=== PATIENT | female | born 1990 | race Caucasian/White ===

== ENCOUNTER 2017-03-20 06:27 | Emergency (ER) | payer BC ==
--- NOTE | 2017-03-20 07:04 | EDM.PDOC ---
ED HPI HEADACHE COMPLAINT - General Chief Complaint: Headache Stated Complaint: HEADACHE Time Seen by Provider: 03/20/17 07:04 Source of Information: Reports: Patient History Limitations: Reports: No limitations - History of Present Illness Symptom Onset Date: 03/18/17 Symptom Onset Time: 07:00 Timing/Duration: Reports: day(s): Location: Reports: temporal, right, eye, right Quality: Reports: pounding, other (throbbing) Severity: Reports: similar to past headaches Context: Denies: dietary trigger, recent drugs/ETOH, change in medications, other Associated Symptoms: Reports: photophobia, vision changes 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, 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 - Related Data Allergies/ADRs: Allergies Allergy/AdvReac Type Severity Reaction Status Date / Time clarithromycin [From Biaxin] Allergy Airway Verified 03/20/17 06:37 Tightness fluticasone propionate Allergy Nose Bleeds Verified 03/20/17 06:37 [From Flonase] cefuroxime axetil AdvReac Nausea and Verified 03/20/17 06:37 [From Ceftin] Vomiting risperidone AdvReac Verified 03/20/17 06:37 Home Meds: Home Meds Cetirizine HCl [Zyrtec] 20 mg PO DAILY 01/03/17 [History] ClonazePAM [KlonoPIN] 2 mg PO BEDTIME 01/03/17 [History] Fluticasone/Salmeterol [Advair 250-50 Diskus] 1 spray IH DAILY 01/03/17 [History ] Montelukast Sodium [Singulair] 10 mg PO DAILY 01/03/17 [History] fluvoxaMINE Maleate [Fluvoxamine Maleate ER] 150 mg PO BID 01/03/17 [History] Ketorolac [Toradol] 10 mg PO Q6H PRN #6 tablet 03/20/17 [Rx] Metoclopramide HCl [Reglan] 10 mg PO Q6H PRN #6 tablet 03/20/17 [Rx] Past Medical History HEENT History: Reports: Allergic rhinitis Respiratory History: Reports: Asthma, Other (see below) Other Respiratory History: allergies 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 History: Reports: GERD 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 (see below) Other OB/BYN History: IUD Neurological History: Reports: Migraines Psychiatric History: Reports: Anxiety, Bipolar, OCD - Past Surgical History HEENT Surgical History: Reports: Adenoidectomy, Tonsillectomy GI Surgical History: Reports: Cholecystectomy Social & Family History - Tobacco Use Smoking Status *Q: Never Smoker Years of Tobacco use: 6 Packs/Tins Daily: 1 Second Hand Smoke Exposure: Yes - Caffeine Use Caffeine Use: Reports: None - Alcohol Use Days Per Week of Alcohol Use: 0 Number of Drinks Per Day: 0 Total Drinks Per Week: 0 - Recreational Drug Use Recreational Drug Use: No Drug Use in Last 12 Months: No - Living Situation & Occupation Living situation: Reports: single ED ROS GENERAL - Review of Systems Review Of Systems: See Below Constitutional: Reports: fatigue, decreased appetite. Denies: fever, chills, malaise, weakness, weight loss HEENT: Reports: No symptoms Respiratory: Reports: No Symptoms Cardiovascular: Reports: No symptoms Endocrine: Reports: no symptoms GI/Abdominal: Reports: No symptoms : Reports: no symptoms Musculoskeletal: Reports: no symptoms Skin: Reports: no symptoms Neurological: Reports: No Symptoms Psychiatric: Reports: No symptoms Hematologic/Lymphatic: Reports: no symptoms Immunologic: Reports: no symptoms - Physical Exam Exam: See Below Exam Limited By: No limitations General Appearance: alert, moderate distress (Wearing sunglasses.) Eye Exam: bilateral eye: normal inspection, PERRL Head Exam: atraumatic, normocephalic Neck: normal inspection, supple, non-tender, full range of motion Respiratory/Chest: no respiratory distress, lungs clear, normal breath sounds, no accessory muscle use Cardiovascular: normal peripheral pulses, regular rate, rhythm, no edema, no gallop, no murmur GI/Abdominal: normal bowel sounds, soft, non tender, no organomegaly Extremities: normal inspection, normal range of motion, non-tender, no pedal edema, normal capillary refill Psychiatric: normal affect, normal mood Skin Exam: Warm, Dry, Intact, Normal color, No rash Course - Vital Signs Last Recorded V/S: Last Vital Signs Temp 36.8 C 03/20/17 06:32 Pulse 100 03/20/17 07:49 Resp 16 03/20/17 07:49 BP 84/53 L 03/20/17 07:49 Pulse Ox 100 03/20/17 07:49 - Orders/Labs/Meds Orders: Active Orders 24 hr Category Date Time Status Dextrose 5%-0.9% NaCl [Dextrose 5%-Normal Saline] 1,000 Med 03/20/17 07:15 Active ml IV ASDIRECTED Ketorolac [Toradol] Med 03/20/17 07:15 Active 30 mg IVPUSH ONETIME Medication Orders Dextrose/Sodium Chloride (Dextrose 5%-Normal Saline) 1,000 mls @ 999 mls/hr IV ASDIRECTED JONATHAN Last Admin: 03/20/17 07:22 Dose: 999 mls/hr Ketorolac Tromethamine (Toradol) 30 mg IVPUSH ONETIME JONATHAN Last Admin: 03/20/17 07:24 Dose: 30 mg Meds: Medications Generic Name Dose Route Start Last Admin Trade Name Freq PRN Reason Stop Dose Admin Dextrose/Sodium Chloride 1,000 mls @ 999 mls/hr 03/20/17 07:15 03/20/17 07:22 Dextrose 5%-Normal Saline IV 999 mls/hr ASDIRECTED JONATHAN Administration Ketorolac Tromethamine 30 mg 03/20/17 07:15 03/20/17 07:24 Toradol IVPUSH 30 mg ONETIME JONATHAN Administration Discontinued Medications Generic Name Dose Route Start Last Admin Trade Name Freq PRN Reason Stop Dose Admin Diphenhydramine HCl 25 mg 03/20/17 07:08 Benadryl IVPUSH 03/20/17 07:09 ONETIME ONE Diphenhydramine HCl 50 mg 03/20/17 07:15 03/20/17 07:28 Benadryl IVPUSH 03/20/17 07:16 50 mg ONETIME ONE Administration Metoclopramide HCl 10 mg 03/20/17 07:08 03/20/17 07:26 Reglan IVPUSH 03/20/17 07:09 10 mg ONETIME ONE Administration - Radiology Interpretation Free Text/Narrative:: 76-year-old female presents the ED with a severe headache. Patient states she woke with a headache on ThursdayMarch 20 with a throbbing pounding headache that is primarily on the right side particularly right forehead and right retro- ocular space. Associated nausea without vomiting. She was able to eat and drink fluids however. She has not vomited. His headache also reports she's experience in the past. She takes Topamax daily to try and prevent migraine headaches. Has been up most of the night night with a pounding headache. Headache is no different than what she's experienced in the past. She recognizes that she's extremely light sensitive. Plan IV D5 normal saline and opened. Given Toradol 30 mg IV with Benadryl 50 mg IV and Reglan 10 mg IV. - Re-Assessments/Exams Free Text/Narrative Re-Assessment/Exam: 03/20/17 08:01 feeling much improved. Headache is currently down to 3/10. She feels she'll be up to go home and sleep at this time. Has had about 600 mils of normal saline infused. She'll be discharged home at this time. I did provide a prescription for Toradol 10 mg tablets and Reglan 10 mg tablets I can be taken together every 6 hours when necessary for bad headache relief. Departure - Departure Time of Disposition: 08:00 Disposition: Home, Self-Care 01 Condition: fair Clinical Impression: Migraine Prescriptions: Ketorolac [Toradol] 10 mg PO Q6H PRN #6 tablet PRN Reason: migraine headache Metoclopramide HCl [Reglan] 10 mg PO Q6H PRN #6 tablet PRN Reason: migraine headache Referrals: Iirs Negron PA-C [Primary Care Provider] - Forms: ED Department Discharge, Return to Work/School Form Additional Instructions: Evaluation in the emergency room today in regards to migraine headache. Treated with IV fluids. Toradol 30mg with Reglan 10mg and Benadryl 50mg IV for headache relief. Suggest trying one tablet of Reglan with one tablet of Toradol at onset of next bad headache to see if this will bring bad headache under control at home. I have written script for 6 tablets of each to try. Follow upw [facility] if any other problems ocur. - My Orders Last 24 Hours: My Active Orders 03/20/17 07:15 Dextrose 5%-0.9% NaCl [Dextrose 5%-Normal Saline] 1,000 ml IV ASDIRECTED Ketorolac [Toradol] 30 mg IVPUSH ONETIME - Assessment/Plan Last 24 Hours: My Active Orders 03/20/17 07:15 Dextrose 5%-0.9% NaCl [Dextrose 5%-Normal Saline] 1,000 ml IV ASDIRECTED Ketorolac [Toradol] 30 mg IVPUSH ONETIME
[2017-03-20] MEDS ORDERED: diphenhydrAMINE 50 MG/ML SDV IVPUSH ONE ×2 (07:08→07:15)
[2017-03-20] MEDS ORDERED: Metoclopramide 10 MG/2 ML SDV IVPUSH ONE (07:08)
[2017-03-20] MEDS ORDERED: Ketorolac 30 MG/ML SDV IVPUSH SCH (07:15)
[2017-03-20] MEDS ORDERED: Dextrose 5%-0.9% NaCl 1,000 ML IV SCH (07:15)
[2017-03-20 07:50] VITALS: BP 84/53
== END 2017-03-20 08:12 | disposition home or self-care (01) ==
LOC: JD.ED 06:27
DX: G43.909 Migraine, unspecified, not intractable, without status migrainosus (principal); J45.909 Unspecified asthma, uncomplicated; J21.9 Acute bronchiolitis, unspecified; F41.9 Anxiety disorder, unspecified; F31.9 Bipolar disorder, unspecified; Z90.49 Acquired absence of other specified parts of digestive tract; Z98.890 Other specified postprocedural states; Z97.5 Presence of (intrauterine) contraceptive device; Z79.899 Other long term (current) drug therapy; Z88.1 Allergy status to other antibiotic agents; Z88.8 Allergy status to other drugs, medicaments and biological substances
CPT/HCPCS: 96361; 96374; 96375; 99284; J1200; J1885; J2765; J7042

== ENCOUNTER 2017-08-28 06:04 | Emergency (ER) | payer BC ==
[2017-08-28 06:17] VITALS: BP 130/74
--- NOTE | 2017-08-28 06:23 | EDM.PDOC ---
ED HPI GENERAL MEDICAL PROBLEM - General Chief Complaint: Abdominal Pain Stated Complaint: ABDOMINAL PAIN Time Seen by Provider: 08/28/17 06:22 Source of Information: Reports: Patient, RN Notes Reviewed - History of Present Illness INITIAL COMMENTS - FREE TEXT/NARRATIVE: 26-year-old female comes in with right flank, right mid abdominal discomfort and nausea, vomiting. She states she was even more ill Thursday 2 days ago with similar discomfort and repetitive nausea vomiting. Pain was gone yesterday , she felt much better. She was able to eat and drink normally. Then about 1:00 this morning she started having recurrence of pain and also more nausea and vomiting. Pain continues to be in the right flank area with some radiation to the back. She states the pain does not go to her left abdomen. Denies voiding symptomatology. She thought that she had chills during the night, possibly low- grade fever. No chest pain or difficulty breathing. RLQ/right flank Pain Score (Numeric/FACES): 4 - Related Data Allergies Allergy/AdvReac Type Severity Reaction Status Date / Time clarithromycin [From Biaxin] Allergy Airway Verified 08/28/17 06:18 Tightness fluticasone propionate Allergy Nose Bleeds Verified 08/28/17 06:18 [From Flonase] gluten Allergy Other Verified 08/28/17 06:18 cefuroxime axetil AdvReac Nausea and Verified 08/28/17 06:18 [From Ceftin] Vomiting risperidone AdvReac Verified 08/28/17 06:18 Home Meds: Home Meds Cetirizine HCl [Zyrtec] 20 mg PO DAILY 01/03/17 [History] ClonazePAM [KlonoPIN] 2 mg PO BEDTIME 01/03/17 [History] Fluticasone/Salmeterol [Advair 250-50 Diskus] 1 spray IH DAILY 01/03/17 [History ] Montelukast Sodium [Singulair] 10 mg PO DAILY 01/03/17 [History] fluvoxaMINE Maleate [Fluvoxamine Maleate ER] 150 mg PO BID 01/03/17 [History] Ketorolac [Toradol] 10 mg PO Q6H PRN #6 tablet 03/20/17 [Rx] Ondansetron [Zofran ODT] 4 mg PO Q6H PRN 08/28/17 [History] Topiramate [Topamax] 150 mg PO BID 08/28/17 [History] medroxyPROGESTERone Acetate [Depo-Provera] 150 mg IM ASDIRECTED 08/28/17 [ History] Past Medical History HEENT History: Reports: Allergic Rhinitis Respiratory History: Reports: Asthma, Other (See Below) Other Respiratory History: allergies 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 History: Reports: GERD 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) Other OB/BYN History: IUD Neurological History: Reports: Migraines Psychiatric History: Reports: Anxiety, Bipolar, OCD - Past Surgical History HEENT Surgical History: Reports: Adenoidectomy, Tonsillectomy GI Surgical History: Reports: Cholecystectomy Social & Family History - Tobacco Use Smoking Status *Q: Never Smoker Years of Tobacco use: 6 Packs/Tins Daily: 1 Second Hand Smoke Exposure: Yes - Caffeine Use Caffeine Use: Reports: None - Alcohol Use Days Per Week of Alcohol Use: 0 Number of Drinks Per Day: 0 Total Drinks Per Week: 0 - Recreational Drug Use Recreational Drug Use: No Drug Use in Last 12 Months: No - Living Situation & Occupation Living situation: Reports: Single ED ROS GENERAL - Review of Systems Review Of Systems: See Below Constitutional: Reports: Fever, Chills HEENT: Denies: Throat Pain Respiratory: Denies: Shortness of Breath, Pleuritic Chest Pain Cardiovascular: Denies: Chest Pain GI/Abdominal: Reports: Abdominal Pain, Nausea, Vomiting. Denies: Diarrhea : Reports: No Symptoms Musculoskeletal: Reports: Back Pain Skin: Reports: No Symptoms Neurological: Reports: No Symptoms ED EXAM, GI/ABD - Physical Exam Exam: See Below General Appearance: Alert, No Apparent Distress Eyes: Bilateral: Normal Appearance Throat/Mouth: Normal Inspection, Normal Oropharynx Head: No: Facial Swelling Neck: Supple, Full Range of Motion. No: Lymphadenopathy (L), Lymphadenopathy (R ) Respiratory/Chest: No Respiratory Distress, Lungs Clear, Normal Breath Sounds Cardiovascular: Regular Rate, Rhythm GI/Abdominal Exam: Tender (Mild tenderness right lower quadrant of abdomen, right mid abdomen, right flank). No: Guarding, Rebound Back Exam: CVA Tenderness (R) (Mild). No: CVA Tenderness (L), Paraspinal Tenderness Extremities: Normal Inspection, Normal Range of Motion Neurological: Alert, Oriented, No Motor/Sensory Deficits Skin Exam: Warm, Dry, Normal Color Course - Vital Signs Last Recorded V/S: Last Vital Signs Temp 97.8 F 08/28/17 06:11 Pulse 95 08/28/17 06:11 Resp 18 08/28/17 06:11 BP 130/74 08/28/17 06:11 Pulse Ox 100 08/28/17 06:11 - Orders/Labs/Meds Orders: Active Orders 24 hr Category Date Time Status Peripheral IV Care [RC] . DIRECTED Care 08/28/17 06:31 Active Ketorolac [Toradol] Med 08/28/17 08:00 Active 30 mg IVPUSH ONETIME Sodium Chloride 0.9% [Normal Saline] 1,000 ml Med 08/28/17 06:45 Active IV ONETIME Sodium Chloride 0.9% [Saline Flush] Med 08/28/17 06:31 Active 10 ml FLUSH ASDIRECTED PRN Peripheral IV Insertion Adult [OM.PC] Stat Oth 08/28/17 06:31 Ordered Medication Orders Sodium Chloride (Normal Saline) 1,000 mls @ 999 mls/hr IV ONETIME JONATHAN Last Admin: 08/28/17 06:50 Dose: 999 mls/hr Ketorolac Tromethamine (Toradol) 30 mg IVPUSH ONETIME JONATHAN Sodium Chloride (Saline Flush) 10 ml FLUSH ASDIRECTED PRN PRN Reason: Keep Vein Open Last Admin: 08/28/17 06:50 Dose: 10 ml Labs: Laboratory Tests 08/28/17 08/28/17 08/28/17 Range/Units 06:25 06:40 06:40 WBC 7.48 (3.98-10.04) K/mm3 RBC 4.59 (3.98-5.22) M/mm3 Hgb 13.4 (11.2-15.7) gm/L Hct 40.5 (34.1-44.9) % MCV 88.2 (79.4-94.8) fl MCH 29.2 (25.6-32.2) pg MCHC 33.1 (32.2-35.5) g/dl RDW Std Deviation 40.0 (36.4-46.3) fL Plt Count 223 (182-369) K/mm3 MPV 9.6 (9.4-12.3) fl Neut % (Auto) 62.4 (34.0-71.1) % Lymph % (Auto) 23.4 (19.3-51.7) % [place] % (Auto) 10.7 (4.7-12.5) % Eos % (Auto) 2.9 (0.7-5.8) Baso % (Auto) 0.3 (0.1-1.2) % Neut # (Auto) 4.67 (1.56-6.13) K/mm3 Lymph # (Auto) 1.75 (1.18-3.74) K/mm3 [place] # (Auto) 0.80 H (0.24-0.36) K/mm3 Eos # (Auto) 0.22 (0.04-0.36) K/mm3 Baso # (Auto) 0.02 (0.01-0.08) K/mm3 Sodium (136-145) mEq/L Potassium (3.5-5.1) mEq/L Chloride (98-107) mEq/L Carbon Dioxide (21-32) mEq/L Anion Gap (5-15) BUN (7-18) mg/dL Creatinine (0.55-1.02) mg/dL Est Cr Clr Drug Dosing mL/min Estimated GFR (MDRD) (>60) mL/min BUN/Creatinine Ratio (14-18) Glucose (74-106) mg/dL Calcium (8.5-10.1) mg/dL Total Bilirubin (0.2-1.0) mg/dL AST (15-37) U/L ALT (14-59) U/L Alkaline Phosphatase (46-116) U/L C-Reactive Protein 1.5 H* (<1.0) mg/dL Total Protein (6.4-8.2) g/dl Albumin (3.4-5.0) g/dl Globulin gm/dL Albumin/Globulin Ratio (1-2) HCG, Qual (NEGATIVE) Urine Color Yellow (Yellow) Urine Appearance Clear (Clear) Urine pH 5.5 (5.0-8.0) Ur Specific [place] > or = 1.030 (1.005-1.030) Urine Protein Negative (Negative) Urine Glucose (UA) Negative (Negative) Urine Ketones Negative (Negative) Urine Occult Blood Negative (Negative) Urine Nitrite Negative (Negative) Urine Bilirubin Negative (Negative) Urine Urobilinogen 0.2 (0.2-1.0) Ur Leukocyte Esterase Negative (Negative) Urine RBC 0-5 (0-5) /hpf Urine WBC 0-5 (0-5) /hpf Ur Epithelial Cells 0-5 (0-5) /hpf Urine Bacteria Few (FEW) /hpf Urine Mucus Few (FEW) /hpf 08/28/17 08/28/17 Range/Units 06:40 06:40 WBC (3.98-10.04) K/mm3 RBC (3.98-5.22) M/mm3 Hgb (11.2-15.7) gm/L Hct (34.1-44.9) % MCV (79.4-94.8) fl MCH (25.6-32.2) pg MCHC (32.2-35.5) g/dl RDW Std Deviation (36.4-46.3) fL Plt Count (182-369) K/mm3 MPV (9.4-12.3) fl Neut % (Auto) (34.0-71.1) % Lymph % (Auto) (19.3-51.7) % [place] % (Auto) (4.7-12.5) % Eos % (Auto) (0.7-5.8) Baso % (Auto) (0.1-1.2) % Neut # (Auto) (1.56-6.13) K/mm3 Lymph # (Auto) (1.18-3.74) K/mm3 [place] # (Auto) (0.24-0.36) K/mm3 Eos # (Auto) (0.04-0.36) K/mm3 Baso # (Auto) (0.01-0.08) K/mm3 Sodium 141 (136-145) mEq/L Potassium 3.6 (3.5-5.1) mEq/L Chloride 107 (98-107) mEq/L Carbon Dioxide 22 (21-32) mEq/L Anion Gap 15.6 H (5-15) BUN 9 (7-18) mg/dL Creatinine 0.7 (0.55-1.02) mg/dL Est Cr Clr Drug Dosing 104.24 mL/min Estimated GFR (MDRD) > 60 (>60) mL/min BUN/Creatinine Ratio 12.9 L (14-18) Glucose 103 (74-106) mg/dL Calcium 8.5 (8.5-10.1) mg/dL Total Bilirubin 0.6 (0.2-1.0) mg/dL AST 11 L (15-37) U/L ALT 14 (14-59) U/L Alkaline Phosphatase 62 (46-116) U/L C-Reactive Protein (<1.0) mg/dL Total Protein 7.6 (6.4-8.2) g/dl Albumin 3.6 (3.4-5.0) g/dl Globulin 4.0 gm/dL Albumin/Globulin Ratio 0.9 L (1-2) HCG, Qual Negative (NEGATIVE) Urine Color (Yellow) Urine Appearance (Clear) Urine pH (5.0-8.0) Ur Specific [place] (1.005-1.030) Urine Protein (Negative) Urine Glucose (UA) (Negative) Urine Ketones (Negative) Urine Occult Blood (Negative) Urine Nitrite (Negative) Urine Bilirubin (Negative) Urine Urobilinogen (0.2-1.0) Ur Leukocyte Esterase (Negative) Urine RBC (0-5) /hpf Urine WBC (0-5) /hpf Ur Epithelial Cells (0-5) /hpf Urine Bacteria (FEW) /hpf Urine Mucus (FEW) /hpf Meds: Medications Generic Name Dose Route Start Last Admin Trade Name Freq PRN Reason Stop Dose Admin Sodium Chloride 1,000 mls @ 999 mls/hr 08/28/17 06:45 08/28/17 06:50 Normal Saline IV 999 mls/hr ONETIME JONATHAN Administration Ketorolac Tromethamine 30 mg 08/28/17 08:00 Toradol IVPUSH ONETIME JONATHAN Sodium Chloride 10 ml 08/28/17 06:31 08/28/17 06:50 Saline Flush FLUSH 10 ml ASDIRECTED PRN Administration Keep Vein Open Discontinued Medications Generic Name Dose Route Start Last Admin Trade Name Freq PRN Reason Stop Dose Admin Ondansetron HCl 4 mg 08/28/17 06:31 08/28/17 06:49 Zofran IVPUSH 08/28/17 06:32 4 mg ONETIME ONE Administration - Re-Assessments/Exams Free Text/Narrative Re-Assessment/Exam: 08/28/17 07:52 White blood count has come back normal, C-reactive protein very slightly elevated at 1.5, urine was clear, she is resting comfortably with very minimal discomfort at this time, no further vomiting, she does not have findings on exam of acute surgical abd at this time, discharge instructions as documented Departure - Departure Time of Disposition: 07:53 Disposition: Home, Self-Care 01 Condition: Fair Clinical Impression: Abdominal pain Qualifiers: Abdominal location: right lower quadrant Qualified Code(s): R10.31 - Right lower quadrant pain - Discharge Information Referrals: Iris Negron PA-C [Primary Care Provider] - Forms: ED Department Discharge Additional Instructions: Rest, clear liquids for the next 6-8 hours, than very careful bland diet as tolerated, if pain in the right flank or right abdomen worsens over the next 6- 12 hours instead of resolving return to ED for reevaluation. - My Orders Last 24 Hours: My Active Orders 08/28/17 06:31 Peripheral IV Care [RC] . DIRECTED Sodium Chloride 0.9% [Saline Flush] 10 ml FLUSH ASDIRECTED PRN Peripheral IV Insertion Adult [OM.PC] Stat 08/28/17 06:45 Sodium Chloride 0.9% [Normal Saline] 1,000 ml IV ONETIME 08/28/17 08:00 Ketorolac [Toradol] 30 mg IVPUSH ONETIME - Assessment/Plan Last 24 Hours: My Active Orders 08/28/17 06:31 Peripheral IV Care [RC] . DIRECTED Sodium Chloride 0.9% [Saline Flush] 10 ml FLUSH ASDIRECTED PRN Peripheral IV Insertion Adult [OM.PC] Stat 08/28/17 06:45 Sodium Chloride 0.9% [Normal Saline] 1,000 ml IV ONETIME 08/28/17 08:00 Ketorolac [Toradol] 30 mg IVPUSH ONETIME
[2017-08-28] MEDS ORDERED: Ondansetron 4 MG/2 ML SDV IVPUSH ONE (06:31)
[2017-08-28] MEDS ORDERED: Sodium Chloride 0.9% 10 ML Syringe FLUSH PRN (06:31)
[2017-08-28] MEDS ORDERED: Sodium Chloride 0.9% 1,000 ML IV SCH (06:45)
[2017-08-28] MEDS ORDERED: Ketorolac 30 MG/ML SDV IVPUSH SCH (08:00)
== END 2017-08-28 08:05 | disposition home or self-care (01) ==
LOC: JD.ED 06:04
DX: R10.31 Right lower quadrant pain (principal); J45.909 Unspecified asthma, uncomplicated; F31.9 Bipolar disorder, unspecified; Z90.49 Acquired absence of other specified parts of digestive tract; Z98.890 Other specified postprocedural states; Z79.899 Other long term (current) drug therapy; Z88.1 Allergy status to other antibiotic agents; Z88.8 Allergy status to other drugs, medicaments and biological substances
CPT/HCPCS: 36415; 80053; 81001; 84703; 85025; 86140; 96361; 96374; 96375; 99284; J1885; J2405; J7040; J7050

== ENCOUNTER 2019-04-04 18:57 | Emergency (ER) | payer BC ==
[2019-04-04 19:15] VITALS: BP 140/90
[2019-04-04] MEDS ORDERED: Dexamethasone 10 MG/ML SDV IM ONE (19:24)
[2019-04-04] MEDS ORDERED: diphenhydrAMINE 50 MG Cap PO ONE (19:24)
--- NOTE | 2019-04-04 19:30 | EDM.PDOC ---
ED HPI GENERAL MEDICAL PROBLEM - General Chief Complaint: Allergic Reaction Stated Complaint: ALLERGY SHOTS IN AM FEELS SICK AND SWOLLEN Time Seen by Provider: 04/04/19 19:06 Source of Information: Reports: Patient History Limitations: Reports: No Limitations - History of Present Illness INITIAL COMMENTS - FREE TEXT/NARRATIVE: 28 y/o female presents to ER with cc left upper arm allergic reaction to allergy shots she had this morning. She states for the past year she has been getting allergy shots and today a few hours after her injections she noticed large welts. She denies SOB, chest pain or difficulty swallowing. She did take a Benadryl about 7 hours ago. She did not contact physician because she feel asleep and when she woke up they were closed. She is in no apparent distress at this time. She is accompanied by her family members. Onset: Today Onset Date: 04/04/19 Onset Time: 09:00 Duration: Getting Worse Location: Reports: Upper Extremity, Left Quality: Reports: Ache Severity: Mild Improves with: Reports: None Worsens with: Reports: None Associated Symptoms: Denies: Confusion, Cough, Fever/Chills, Headaches, Nausea/ Vomiting, Shortness of Breath, Weakness Generalized Pain Score (Numeric/FACES): 4 - Related Data Allergies Allergy/AdvReac Type Severity Reaction Status Date / Time clarithromycin [From Biaxin] Allergy Airway Verified 04/04/19 19:05 Tightness fluticasone propionate Allergy Nose Bleeds Verified 04/04/19 19:05 [From Flonase] gluten Allergy Other Verified 04/04/19 19:05 cefuroxime axetil AdvReac Nausea and Verified 04/04/19 19:05 [From Ceftin] Vomiting risperidone AdvReac Verified 04/04/19 19:05 Home Meds: Home Meds Cetirizine HCl [Zyrtec] 20 mg PO DAILY 01/03/17 [History] ClonazePAM [KlonoPIN] 2 mg PO BEDTIME 01/03/17 [History] Montelukast Sodium [Singulair] 10 mg PO DAILY 01/03/17 [History] fluvoxaMINE Maleate [Fluvoxamine Maleate ER] 150 mg PO BID 01/03/17 [History] Ketorolac [Toradol] 10 mg PO Q6H PRN #6 tablet 03/20/17 [Rx] Ondansetron [Zofran ODT] 4 mg PO Q6H PRN 08/28/17 [History] Topiramate [Topamax] 150 mg PO BID 08/28/17 [History] Fluticasone/Vilanterol [Breo Ellipta 200-25 MCG Inhalation Kit] 1 puff INH DAILY 04/04/19 [History] Galcanezumab-Gnlm [Emgality Pen] 1 injection SUBCUT ASDIRECTED 04/04/19 [History ] Spironolactone 75 mg PO DAILY 04/04/19 [History] diphenhydrAMINE [Benadryl] 25 mg PO DAILY PRN 04/04/19 [History] Past Medical History HEENT History: Reports: Allergic Rhinitis Respiratory History: Reports: Asthma, Other (See Below) Other Respiratory History: allergies 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 History: Reports: GERD STACKER History: Reports: Polycystic Ovaries, Other (See Below) Other STACKER History: IUD Neurological History: Reports: Migraines Psychiatric History: Reports: Anxiety, Bipolar, OCD Endocrine/Metabolic History: Reports: Obesity/BMI 30+ Dermatologic History: Reports: Eczema, Urticaria Other Dermatologic History: Rosasia - Past Surgical History HEENT Surgical History: Reports: Adenoidectomy, Tonsillectomy GI Surgical History: Reports: Cholecystectomy Social & Family History - Family History Family Medical History: Noncontributory - Tobacco Use Smoking Status *Q: Never Smoker Second Hand Smoke Exposure: No - Caffeine Use Caffeine Use: Reports: None - Recreational Drug Use Recreational Drug Use: No - Living Situation & Occupation Living situation: Reports: Single ED ROS ALLERGIC REACTION - Review of Systems Review Of Systems: See Below Constitutional: Reports: No Symptoms HEENT: Reports: No Symptoms Respiratory: Denies: Shortness of Breath Cardiovascular: Denies: Chest Pain Endocrine: Reports: No Symptoms GI/Abdominal: Reports: Constipation : Reports: No Symptoms Musculoskeletal: Reports: No Symptoms Skin: Reports: Urticaria (left upper arm injection site uticaria noted. ), Other (right and left upper arm injection sites uticaria noted, areas are erythematous, slight edema, tender to touch, neurovascularly intact. ) Neurological: Reports: No Symptoms ED EXAM GENERAL NO PERIP PULSE - Physical Exam Exam: See Below Exam Limited By: No Limitations General Appearance: Alert, WD/WN, No Apparent Distress Ears: Normal External Exam, Normal Canal, Hearing Grossly Normal, Normal TMs Nose: Normal Inspection, Normal Mucosa, No Blood Throat/Mouth: Normal Inspection, Normal Lips, Normal Teeth, Normal Gums, Normal Oropharynx, Normal Voice, No Airway Compromise Head: Atraumatic, Normocephalic Neck: Normal Inspection, Supple, Non-Tender, Full Range of Motion Respiratory/Chest: No Respiratory Distress, Lungs Clear, Normal Breath Sounds, No Accessory Muscle Use, Chest Non-Tender Cardiovascular: Normal Peripheral Pulses, Regular Rate, Rhythm, No Edema, No Gallop, No JVD, No Murmur, No Rub Back Exam: Normal Inspection, Full Range of Motion Extremities: Normal Inspection, Normal Range of Motion, Non-Tender, No Pedal Edema, Normal Capillary Refill Neurological: Alert, Oriented, CN II-XII Intact, Normal Cognition, Normal Gait Psychiatric: Normal Affect, Normal Mood Skin Exam: Warm, Dry, Intact, No Rash, Other (left upper arm injection site uticaria, area is tender to touch with slight erythema and swelling, neurovascularly intact. right upper arm uticaria at injection site noted, area is red, warm to touch, silight erythema, neurovascularly intact. ) Lymphatic: No Adenopathy Course - Vital Signs Last Recorded V/S: Last Vital Signs Temp 97.6 F 04/04/19 19:10 Pulse 99 04/04/19 19:10 Resp 20 04/04/19 19:10 BP 140/90 04/04/19 19:10 Pulse Ox 99 04/04/19 19:10 - Orders/Labs/Meds Meds: Medications Discontinued Medications Generic Name Dose Route Start Last Admin Trade Name Ollie PRN Reason Stop Dose Admin Dexamethasone 10 mg 04/04/19 19:24 04/04/19 19:31 Dexamethasone IM 04/04/19 19:25 10 mg ONETIME ONE Administration Diphenhydramine HCl 50 mg 04/04/19 19:24 04/04/19 19:30 Benadryl PO 04/04/19 19:25 50 mg ONETIME ONE Administration Famotidine 20 mg 04/04/19 19:42 04/04/19 19:50 Pepcid PO 04/04/19 19:43 20 mg ONETIME ONE Administration - Re-Assessments/Exams Free Text/Narrative Re-Assessment/Exam: 04/04/19 20:06 28 y/o female presents to ER with cc allergic reaction to allergy shots she received this morning. She received Benadryl, Decadron and Pepcid and her condition improved. I will discharge home with instructions to follow up with her PCP. Instructed to return to ER for any new or acute worsening symptoms. She verbalized understanding and is comfortable with plan for discharge. Departure - Departure Time of Disposition: 20:29 Disposition: Home, Self-Care 01 Preliminary Cause of *Q: Cardiac Arrest Condition: Good Clinical Impression: Allergy, urticaria Allergic reaction Qualifiers: Encounter type: initial encounter Qualified Code(s): T78.40XA - Allergy, unspecified, initial encounter - Discharge Information *PRESCRIPTION DRUG MONITORING PROGRAM REVIEWED*: Not Applicable *COPY OF PRESCRIPTION DRUG MONITORING REPORT IN PATIENT RAJEEV: Not Applicable Instructions: Allergies, Adult, [id number] Referrals: Iris Negron PA-C [Primary Care Provider] - Forms: ED Department Discharge, ED Return to Work/School Form Additional Instructions: You have been diagnosis with hyper sensitivity to allergy shots. Follow up with your PCP. Return to the ER for any new or acute worsening symptoms. Take Benadryl 25-50 mg every 4-6 hours as needed. Return to the ER for any new or acute worsening symptoms.
[2019-04-04] MEDS ORDERED: Famotidine 20 MG Tab PO ONE (19:42)
== END 2019-04-04 20:45 | disposition home or self-care (01) ==
LOC: JD.ED 18:57
DX: L50.0 Allergic urticaria (principal); F31.9 Bipolar disorder, unspecified; F41.9 Anxiety disorder, unspecified; K21.9 Gastro-esophageal reflux disease without esophagitis; J45.909 Unspecified asthma, uncomplicated; Z79.899 Other long term (current) drug therapy; Z88.8 Allergy status to other drugs, medicaments and biological substances; Z91.018 Allergy to other foods; Z88.1 Allergy status to other antibiotic agents
CPT/HCPCS: 96372; 99283; A9270; J1100

== ENCOUNTER 2019-12-31 21:17 | Emergency (ER) | payer BC ==
[2019-12-31 21:34] VITALS: PULSE 130
[2019-12-31] MEDS ORDERED: Ondansetron 4 MG/2 ML SDV IVPUSH ONE (21:50)
[2019-12-31] MEDS ORDERED: Sodium Chloride 0.9% 10 ML Syringe FLUSH PRN (21:50)
[2019-12-31] MEDS ORDERED: Sodium Chloride 0.9% 1,000 ML IV STA (21:50)
[2019-12-31] MEDS ORDERED: HYDROmorphone 0.5 MG/0.5 ML Syringe IVPUSH ONE (21:51)
--- NOTE | 2019-12-31 23:02 | EDM.PDOC ---
ED HPI GENERAL MEDICAL PROBLEM - General Chief Complaint: 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 Problem Stated Complaint: VOMITING DEHYDRATED AND FEVER Time Seen by Provider: 12/31/19 21:30 Source of Information: Reports: Patient History Limitations: Reports: No Limitations - History of Present Illness INITIAL COMMENTS - FREE TEXT/NARRATIVE: The patient presents with nausea, vomiting and diarrhea. This started today. She has chills and body aches. She has no cough, congestion or runny nose. She has no dysuria. She still has her gallbladder and appendix. She has not eaten any bad food. She has not been around anyone who is sick as far as she knows of. Onset: Gradual Duration: Hour(s): Severity: Moderate Improves with: Reports: None Worsens with: Reports: None Associated Symptoms: Reports: Fever/Chills, Nausea/Vomiting. Denies: Chest Pain , Cough, Headaches, Shortness of Breath Generalized Pain Score (Numeric/FACES): 7 - Related Data Allergies Allergy/AdvReac Type Severity Reaction Status Date / Time clarithromycin [From Biaxin] Allergy Airway Verified 12/31/19 21:26 Tightness fluticasone propionate Allergy Nose Bleeds Verified 12/31/19 21:26 [From Flonase] gluten Allergy Other Verified 12/31/19 21:26 cefuroxime axetil AdvReac Nausea and Verified 12/31/19 21:26 [From Ceftin] Vomiting risperidone AdvReac Verified 12/31/19 21:26 peanuts Allergy Anaphylactic Uncoded 12/31/19 21:26 Shock tree nuts Allergy Hives Uncoded 12/31/19 21:26 Home Meds: Home Meds Cetirizine HCl [Zyrtec] 10 mg PO DAILY 01/03/17 [History] ClonazePAM [KlonoPIN] 2 mg PO BEDTIME 01/03/17 [History] Montelukast Sodium [Singulair] 10 mg PO DAILY 01/03/17 [History] fluvoxaMINE Maleate [Fluvoxamine Maleate ER] 150 mg PO BID 01/03/17 [History] Ketorolac [Toradol] 10 mg PO Q6H PRN #6 tablet 03/20/17 [Rx] Ondansetron [Zofran ODT] 4 mg PO Q6H PRN 08/28/17 [History] Topiramate [Topamax] 100 mg PO BID 08/28/17 [History] Fluticasone/Vilanterol [Breo Ellipta 200-25 MCG Inhalation Kit] 1 puff INH DAILY 04/04/19 [History] Galcanezumab-Gnlm [Emgality Pen] 1 injection SUBCUT ASDIRECTED 04/04/19 [History ] Spironolactone 50 mg PO DAILY 04/04/19 [History] diphenhydrAMINE [Benadryl] 25 mg PO DAILY PRN 04/04/19 [History] Cyclobenzaprine [Flexeril] 10 mg PO TID PRN 12/31/19 [History] Omalizumab [Xolair] 300 mg SQ ASDIRECTED 12/31/19 [History] Spironolactone [Aldactone] 100 mg PO BEDTIME 12/31/19 [History] Past Medical History HEENT History: Reports: Allergic Rhinitis Respiratory History: Reports: Asthma, Other (See Below) Other Respiratory History: allergies 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 History: Reports: GERD 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: Polycystic 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, Other (See Below) Other WOOD STRIP BLOCK FLOOR INSTALLER History: IUD Neurological History: Reports: Migraines Psychiatric History: Reports: Anxiety, Bipolar, OCD Endocrine/Metabolic History: Reports: Obesity/BMI 30+ Dermatologic History: Reports: Eczema, Urticaria Other Dermatologic History: Rosasia - Past Surgical History HEENT Surgical History: Reports: Adenoidectomy, Tonsillectomy GI Surgical History: Reports: Cholecystectomy Social & Family History - Family History Family Medical History: Noncontributory - Tobacco Use Smoking Status *Q: Never Smoker - Caffeine Use Caffeine Use: Reports: None - Recreational Drug Use Recreational Drug Use: No - Living Situation & Occupation Living situation: Reports: Single ED ROS GENERAL - Review of Systems Review Of Systems: See Below Constitutional: Reports: No Symptoms HEENT: Reports: No Symptoms Respiratory: Reports: No Symptoms Cardiovascular: Reports: No Symptoms Endocrine: Reports: No Symptoms GI/Abdominal: Reports: Diarrhea, Nausea, Vomiting. Denies: Abdominal Pain : Reports: No Symptoms Musculoskeletal: Reports: No Symptoms ED EXAM, GI/ABD - Physical Exam Exam: See Below Exam Limited By: No Limitations General Appearance: Alert, No Apparent Distress Ears: Normal External Exam Nose: Normal Inspection Head: Atraumatic, Normocephalic Neck: Normal Inspection Respiratory/Chest: No Respiratory Distress, Lungs Clear, Normal Breath Sounds Cardiovascular: Regular Rate, Rhythm, No Edema, No Murmur GI/Abdominal Exam: Soft, Non-Tender, No Organomegaly, No Mass Back Exam: Normal Inspection Extremities: Normal Inspection Course - Vital Signs Last Recorded V/S: Last Vital Signs Temp 98.3 F 12/31/19 21:27 Pulse 130 H 12/31/19 21:27 Resp 19 12/31/19 21:27 BP Pulse Ox 99 12/31/19 21:27 - Orders/Labs/Meds Orders: Active Orders 24 hr Category Date Time Status Peripheral IV Care [RC] . DIRECTED Care 12/31/19 21:50 Active UA W/MICROSCOPIC [URIN] Stat Lab 12/31/19 21:50 Stop Req Sodium Chloride 0.9% [Saline Flush] Med 12/31/19 21:50 Active 10 ml FLUSH ASDIRECTED PRN ED Antiemetic Medication Reflex [OM.PC] Stat Oth 12/31/19 21:50 Ordered Peripheral IV Insertion Adult [OM.PC] Stat Oth 12/31/19 21:50 Ordered Medication Orders Sodium Chloride (Saline Flush) 10 ml FLUSH ASDIRECTED PRN PRN Reason: Keep Vein Open Last Admin: 12/31/19 22:05 Dose: 10 ml Labs: Laboratory Tests 12/31/19 12/31/19 12/31/19 Range/Units 22:00 22:00 22:00 WBC 11.35 H (3.98-10.04) K/mm3 RBC 4.85 (3.98-5.22) M/mm3 Hgb 14.6 (11.2-15.7) gm/dl Hct 43.2 (34.1-44.9) % MCV 89.1 (79.4-94.8) fl MCH 30.1 (25.6-32.2) pg MCHC 33.8 (32.2-35.5) g/dl RDW Std Deviation 40.7 (36.4-46.3) fL Plt Count 220 (182-369) K/mm3 MPV 10.1 (9.4-12.3) fl Neut % (Auto) 92.4 H (34.0-71.1) % Lymph % (Auto) 2.1 L (19.3-51.7) % Maury % (Auto) 5.0 (4.7-12.5) % Eos % (Auto) 0.4 L (0.7-5.8) Baso % (Auto) 0.1 (0.1-1.2) % Neut # (Auto) 10.49 H (1.56-6.13) K/mm3 Lymph # (Auto) 0.24 L (1.18-3.74) K/mm3 Maury # (Auto) 0.57 H (0.24-0.36) K/mm3 Eos # (Auto) 0.04 (0.04-0.36) K/mm3 Baso # (Auto) 0.01 (0.01-0.08) K/mm3 Manual Slide Review Abnormal smear Sodium 141 (136-145) mEq/L Potassium 4.3 (3.5-5.1) mEq/L Chloride 106 (98-107) mEq/L Carbon Dioxide 21 (21-32) mEq/L Anion Gap 18.3 H (5-15) BUN 17 (7-18) mg/dL Creatinine 0.8 (0.55-1.02) mg/dL Est Cr Clr Drug Dosing 88.79 mL/min Estimated GFR (MDRD) > 60 (>60) mL/min BUN/Creatinine Ratio 21.3 H (14-18) Glucose 129 H (74-106) mg/dL Calcium 8.8 (8.5-10.1) mg/dL Total Bilirubin 0.5 (0.2-1.0) mg/dL AST 12 L (15-37) U/L ALT 21 (14-59) U/L Alkaline Phosphatase 67 (46-116) U/L Total Protein 8.2 (6.4-8.2) g/dl Albumin 4.1 (3.4-5.0) g/dl Globulin 4.1 gm/dL Albumin/Globulin Ratio 1.0 (1-2) Lipase 84 (73-393) U/L HCG, Qual Negative (NEGATIVE) Meds: Medications Generic Name Dose Route Start Last Admin Trade Name Freq PRN Reason Stop Dose Admin Sodium Chloride 10 ml 12/31/19 21:50 12/31/19 22:05 Saline Flush FLUSH 10 ml ASDIRECTED PRN Administration Keep Vein Open Discontinued Medications Generic Name Dose Route Start Last Admin Trade Name Freq PRN Reason Stop Dose Admin Hydromorphone HCl 0.5 mg 12/31/19 21:51 12/31/19 22:05 Dilaudid IVPUSH 12/31/19 21:52 0.5 mg ONETIME ONE Administration Sodium Chloride 1,000 mls @ 1,000 mls/hr 12/31/19 21:50 12/31/19 22:03 Normal Saline IV 12/31/19 22:49 1,000 mls/hr .BOLUS STA Administration Ondansetron HCl 4 mg 12/31/19 21:50 12/31/19 22:03 Zofran IVPUSH 12/31/19 21:51 4 mg ONETIME ONE Administration - Re-Assessments/Exams Free Text/Narrative Re-Assessment/Exam: 12/31/19 23:00 I ordered an IV NS 1L bolus, zofran 4mg IV, labs and UA. Her WBC was elevated at 11.35. Her anion gap is elevated at 18.3. Her glucose is elevated at 129. Her lipase is negative. Her HCG is negative. 12/31/19 23:36 She had some ice and water. I will discharge her home. She has some zofran at home. Departure - Departure Time of Disposition: 23:40 Disposition: Home, Self-Care 01 Condition: Good Clinical Impression: Gastroenteritis - Discharge Information *PRESCRIPTION DRUG MONITORING PROGRAM REVIEWED*: Not Applicable *COPY OF PRESCRIPTION DRUG MONITORING REPORT IN PATIENT RAJEEV: Not Applicable Referrals: Iris Negron PA-C [Primary Care Provider] - 1 Week Forms: ED Department Discharge, ED Return to Work/School Form Additional Instructions: Drink plenty of fluids. Take zofran every 6 hours as needed for nausea or vomiting. Advance your diet as tolerated. Please return if you are worse. Sepsis Event Note - Evaluation Sepsis Screening Result: No Definite Risk - Focused Exam Vital Signs: Vital Signs Temp Pulse Resp Pulse Ox 12/31/19 21:27 98.3 F 130 H 19 99 Date Exam was Performed: 12/31/19 Time Exam was Performed: 23:36 - My Orders Last 24 Hours: My Active Orders 12/31/19 21:50 Peripheral IV Care [RC] . DIRECTED UA W/MICROSCOPIC [URIN] Stat Sodium Chloride 0.9% [Saline Flush] 10 ml FLUSH ASDIRECTED PRN ED Antiemetic Medication Reflex [OM.PC] Stat Peripheral IV Insertion Adult [OM.PC] Stat - Assessment/Plan Last 24 Hours: My Active Orders 12/31/19 21:50 Peripheral IV Care [RC] . DIRECTED UA W/MICROSCOPIC [URIN] Stat Sodium Chloride 0.9% [Saline Flush] 10 ml FLUSH ASDIRECTED PRN ED Antiemetic Medication Reflex [OM.PC] Stat Peripheral IV Insertion Adult [OM.PC] Stat
== END 2019-12-31 23:55 | disposition home or self-care (01) ==
LOC: JD.ED 21:17
DX: K52.9 Noninfective gastroenteritis and colitis, unspecified (principal); J45.909 Unspecified asthma, uncomplicated; K21.9 Gastro-esophageal reflux disease without esophagitis; F31.9 Bipolar disorder, unspecified; F41.9 Anxiety disorder, unspecified; Z79.899 Other long term (current) drug therapy; Z91.010 Allergy to peanuts; Z88.8 Allergy status to other drugs, medicaments and biological substances
CPT/HCPCS: 36415; 80053; 83690; 84703; 85025; 96361; 96374; 96375; 99284; J1170; J2405; J7030; 99283

== ENCOUNTER 2020-07-09 18:28 | Emergency (ER) | payer BC ==
[2020-07-09 18:46] VITALS: BP 138/89; PULSE 114
[2020-07-09] MEDS ORDERED: Ondansetron 4 MG/2 ML SDV IVPUSH ONE (19:16)
--- NOTE | 2020-07-09 19:21 | EDM.PDOC ---
ED HPI GENERAL MEDICAL PROBLEM - General Chief Complaint: Abdominal Pain Stated Complaint: RIGHT SIDE ABD PAIN Time Seen by Provider: 07/09/20 19:07 Source of Information: Reports: Patient, RN Notes Reviewed History Limitations: Reports: No Limitations - History of Present Illness INITIAL COMMENTS - FREE TEXT/NARRATIVE: Patient is a 29-year-old female who presents to the ED for the evaluation of her right-sided abdominal pain. Patient notes that she developed some right lower quadrant abdominal pain, that seems to radiate up through to her right flank and into her back. She does have a history of PCOS, but states that this pain is much different than her normal PCOS pain. She has nausea but no vomiting, she is not had any diarrhea. States her last bowel movement was around 5 PM today. She does note that the pain seems to worsen with walking, coughing or laughing. She notes that the pain started yesterday, got a little bit better, but then today has been on and off. She states that around 1 PM today, it got a lot worse. She did try thousand grams of Tylenol with not a lot of relief. Patient denies any chance of , she states she has not had sex in over 3-1/2 years. She also has an IUD in place. She is not complaining of any fevers or chills, cough or shortness of breath. She is not complaining of any urinary issues such as frequency urgency or hematuria. She does not have a history of kidney stones. Right Lower Abdomen Pain Score (Numeric/FACES): 8 - Related Data Allergies Allergy/AdvReac Type Severity Reaction Status Date / Time cefdinir Allergy Cannot Verified 07/09/20 18:45 Remember clarithromycin [From Biaxin] Allergy Airway Verified 07/09/20 18:45 Tightness fluticasone propionate Allergy Nose Bleeds Verified 07/09/20 18:45 [From Flonase] gluten Allergy Other Verified 07/09/20 18:45 cefuroxime axetil AdvReac Nausea and Verified 07/09/20 18:45 [From Ceftin] Vomiting risperidone AdvReac Verified 07/09/20 18:45 peanuts Allergy Anaphylactic Uncoded 07/09/20 18:45 Shock tree nuts Allergy Hives Uncoded 07/09/20 18:45 Home Meds: Home Meds Cetirizine HCl [Zyrtec] 10 mg PO DAILY 01/03/17 [History] ClonazePAM [KlonoPIN] 2 mg PO BEDTIME 01/03/17 [History] Montelukast Sodium [Singulair] 10 mg PO DAILY 01/03/17 [History] fluvoxaMINE Maleate [Fluvoxamine Maleate ER] 150 mg PO BID 01/03/17 [History] Ketorolac [Toradol] 10 mg PO Q6H PRN #6 tablet 03/20/17 [Rx] Ondansetron [Zofran ODT] 4 mg PO Q6H PRN 08/28/17 [History] Topiramate [Topamax] 100 mg PO BID 08/28/17 [History] Fluticasone/Vilanterol [Breo Ellipta 200-25 MCG Inhalation Kit] 1 puff INH DAILY 04/04/19 [History] Galcanezumab-Gnlm [Emgality Pen] 1 injection SUBCUT ASDIRECTED 04/04/19 [History] Spironolactone 50 mg PO DAILY 04/04/19 [History] diphenhydrAMINE [Benadryl] 25 mg PO DAILY PRN 04/04/19 [History] Cyclobenzaprine [Flexeril] 10 mg PO TID PRN 12/31/19 [History] Omalizumab [Xolair] 300 mg SQ ASDIRECTED 12/31/19 [History] Spironolactone [Aldactone] 100 mg PO BEDTIME 12/31/19 [History] Past Medical History HEENT History: Reports: Allergic Rhinitis Respiratory History: Reports: Asthma, Other (See Below) Other Respiratory History: allergies 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 History: Reports: GERD LENDING ACTIVITIES SUPERVISOR History: Reports: Polycystic Ovaries, Other (See Below) Other LENDING ACTIVITIES SUPERVISOR History: IUD Neurological History: Reports: Migraines Psychiatric History: Reports: Anxiety, Bipolar, OCD Endocrine/Metabolic History: Reports: Obesity/BMI 30+ Hematologic History: Reports: Other (See Below) Other Hematologic History: low vitamin D Dermatologic History: Reports: Eczema, Urticaria Other Dermatologic History: Rosasia - Past Surgical History HEENT Surgical History: Reports: Adenoidectomy, Tonsillectomy GI Surgical History: Reports: Cholecystectomy Social & Family History - Family History Family Medical History: Noncontributory - Tobacco Use Smoking Status *Q: Never Smoker Second Hand Smoke Exposure: Yes - Caffeine Use Caffeine Use: Reports: None - Recreational Drug Use Recreational Drug Use: No - Living Situation & Occupation Living situation: Reports: Single ED ROS GENERAL - Review of Systems Review Of Systems: Comprehensive ROS is negative, except as noted in HPI. ED EXAM, GI/ABD - Physical Exam Exam: See Below Exam Limited By: No Limitations General Appearance: Alert, WD/WN, No Apparent Distress Eyes: Bilateral: Normal Appearance, EOMI Respiratory/Chest: No Respiratory Distress, Lungs Clear, Normal Breath Sounds, No Accessory Muscle Use, Chest Non-Tender Cardiovascular: Normal Peripheral Pulses, Regular Rate, Rhythm, No Murmur GI/Abdominal Exam: Normal Bowel Sounds, Soft, No Distention, No Mass (but hard to appreciate d/t obese body habitus), Tender (RLQ mainly) (Female) Exam: No: Vaginal Bleeding (per patient report) Extremities: Normal Inspection, Normal Capillary Refill Neurological: Alert, Oriented, Normal Cognition, No Motor/Sensory Deficits Psychiatric: Normal Affect, Normal Mood Skin Exam: Warm, Dry, Intact, Normal Color, No Rash Course - Vital Signs Last Recorded V/S: Last Vital Signs Temp 97.5 F 07/09/20 18:41 Pulse 114 H 07/09/20 18:41 Resp 16 07/09/20 18:41 BP 138/89 07/09/20 18:41 Pulse Ox 100 07/09/20 18:41 - Orders/Labs/Meds Orders: Active Orders 24 hr Category Date Time Status Sodium Chloride 0.9% [Normal Saline] 1,000 ml Med 07/09/20 19:30 Active IV ASDIRECTED Sodium Chloride 0.9% [Saline Flush] Med 07/09/20 19:54 Active 10 ml FLUSH ONETIME PRN Medication Orders Sodium Chloride (Normal Saline) 1,000 mls @ 999 mls/hr IV ASDIRECTED JONATHAN Last Admin: 07/09/20 19:47 Dose: 999 mls/hr Documented by: GUANAKO Sodium Chloride (Saline Flush) 10 ml FLUSH ONETIME PRN PRN Reason: Keep Vein Open Last Admin: 07/09/20 20:57 Dose: 10 ml Documented by: BILLIE Labs: Laboratory Tests 07/09/20 07/09/20 07/09/20 Range/Units 19:37 19:37 20:20 WBC 9.96 (3.98-10.04) K/mm3 RBC 4.62 (3.98-5.22) M/mm3 Hgb 13.8 (11.2-15.7) gm/dl Hct 42.3 (34.1-44.9) % MCV 91.6 (79.4-94.8) fl MCH 29.9 (25.6-32.2) pg MCHC 32.6 (32.2-35.5) g/dl RDW Std Deviation 41.0 (36.4-46.3) fL Plt Count 257 (182-369) K/mm3 MPV 9.9 (9.4-12.3) fl Neutrophils % (Manual) 68 H (40-60) % Band Neutrophils % 1 (0-10) % Lymphocytes % (Manual) 25 (20-40) % Atypical Lymphs % 0 % Monocytes % (Manual) 5 (2-10) % Eosinophils % (Manual) 1 (0.7-5.8) % Basophils % (Manual) 0 L (0.1-1.2) Platelet Estimate Adequate RBC Morph Comment Normal Sodium 139 (136-145) mEq/L Potassium 3.9 (3.5-5.1) mEq/L Chloride 104 (98-107) mEq/L Carbon Dioxide 24 (21-32) mEq/L Anion Gap 14.9 (5-15) BUN 13 (7-18) mg/dL Creatinine 0.9 (0.55-1.02) mg/dL Est Cr Clr Drug Dosing 78.93 mL/min Estimated GFR (MDRD) > 60 (>60) mL/min BUN/Creatinine Ratio 14.4 (14-18) Glucose 90 (74-106) mg/dL Calcium 8.7 (8.5-10.1) mg/dL Magnesium 1.8 (1.8-2.4) mg/dl Total Bilirubin 0.2 (0.2-1.0) mg/dL AST 7 L (15-37) U/L ALT 19 (14-59) U/L Alkaline Phosphatase 64 (46-116) U/L C-Reactive Protein 1.4 H* (<1.0) mg/dL Total Protein 8.1 (6.4-8.2) g/dl Albumin 3.9 (3.4-5.0) g/dl Globulin 4.2 gm/dL Albumin/Globulin Ratio 0.9 L (1-2) Urine Color Yellow (Yellow) Urine Appearance Clear (Clear) Urine pH 5.5 (5.0-8.0) Ur Specific [place] > or = 1.030 (1.005-1.030) Urine Protein Negative (Negative) Urine Glucose (UA) Negative (Negative) Urine Ketones Trace H (Negative) Urine Occult Blood Negative (Negative) Urine Nitrite Negative (Negative) Urine Bilirubin 1+ H (Negative) Urine Urobilinogen 0.2 (0.2-1.0) Ur Leukocyte Esterase Negative (Negative) Urine RBC 0-5 (0-5) /hpf Urine WBC 0-5 (0-5) /hpf Ur Squamous Epith Cells 5-10 H (0-5) /hpf Urine Bacteria Few (FEW) /hpf Urine Mucus Many H (FEW) /hpf Urine HCG, Qual (NEGATIVE) 07/09/20 Range/Units 20:20 WBC (3.98-10.04) K/mm3 RBC (3.98-5.22) M/mm3 Hgb (11.2-15.7) gm/dl Hct (34.1-44.9) % MCV (79.4-94.8) fl MCH (25.6-32.2) pg MCHC (32.2-35.5) g/dl RDW Std Deviation (36.4-46.3) fL Plt Count (182-369) K/mm3 MPV (9.4-12.3) fl Neutrophils % (Manual) (40-60) % Band Neutrophils % (0-10) % Lymphocytes % (Manual) (20-40) % Atypical Lymphs % % Monocytes % (Manual) (2-10) % Eosinophils % (Manual) (0.7-5.8) % Basophils % (Manual) (0.1-1.2) Platelet Estimate RBC Morph Comment Sodium (136-145) mEq/L Potassium (3.5-5.1) mEq/L Chloride (98-107) mEq/L Carbon Dioxide (21-32) mEq/L Anion Gap (5-15) BUN (7-18) mg/dL Creatinine (0.55-1.02) mg/dL Est Cr Clr Drug Dosing mL/min Estimated GFR (MDRD) (>60) mL/min BUN/Creatinine Ratio (14-18) Glucose (74-106) mg/dL Calcium (8.5-10.1) mg/dL Magnesium (1.8-2.4) mg/dl Total Bilirubin (0.2-1.0) mg/dL AST (15-37) U/L ALT (14-59) U/L Alkaline Phosphatase (46-116) U/L C-Reactive Protein (<1.0) mg/dL Total Protein (6.4-8.2) g/dl Albumin (3.4-5.0) g/dl Globulin gm/dL Albumin/Globulin Ratio (1-2) Urine Color (Yellow) Urine Appearance (Clear) Urine pH (5.0-8.0) Ur Specific [place] (1.005-1.030) Urine Protein (Negative) Urine Glucose (UA) (Negative) Urine Ketones (Negative) Urine Occult Blood (Negative) Urine Nitrite (Negative) Urine Bilirubin (Negative) Urine Urobilinogen (0.2-1.0) Ur Leukocyte Esterase (Negative) Urine RBC (0-5) /hpf Urine WBC (0-5) /hpf Ur Squamous Epith Cells (0-5) /hpf Urine Bacteria (FEW) /hpf Urine Mucus (FEW) /hpf Urine HCG, Qual Negative (NEGATIVE) Meds: Medications Generic Name Dose Route Start Last Admin Trade Name Freq PRN Reason Stop Dose Admin Sodium Chloride 1,000 mls @ 999 mls/hr 07/09/20 19:30 07/09/20 19:47 Normal Saline IV 999 mls/hr ASDIRECTED JONATHAN Administration Sodium Chloride 10 ml 07/09/20 19:54 07/09/20 20:57 Saline Flush FLUSH 10 ml ONETIME PRN Administration Keep Vein Open Discontinued Medications Generic Name Dose Route Start Last Admin Trade Name Freq PRN Reason Stop Dose Admin Diatrizoate Meglum/Diatrizoate Sod 40 ml 07/09/20 19:54 07/09/20 20:57 Gastrografin 37% PO 07/09/20 19:55 40 ml ONETIME ONE Administration Hydromorphone HCl 1 mg 07/09/20 19:16 07/09/20 20:41 Dilaudid IVPUSH 07/09/20 19:17 0.5 mg ONETIME STA Administration Iopamidol 100 ml 07/09/20 19:54 07/09/20 20:54 Isovue-300 (61%) IVPUSH 07/09/20 19:55 100 ml ONETIME ONE Administration Iopamidol 25 ml 07/09/20 20:45 07/09/20 20:54 Isovue-300 (61%) IVPUSH 07/09/20 20:46 25 ml ONETIME ONE Administration Ondansetron HCl 4 mg 07/09/20 19:16 07/09/20 19:47 Zofran IVPUSH 07/09/20 19:17 4 mg ONETIME ONE Administration - Re-Assessments/Exams Free Text/Narrative Re-Assessment/Exam: 07/09/20 19:20 Patient presents to the ED for the evaluation of her right lower quadrant abdominal pain. She will have labs drawn, IV fluids, IV pain meds, and IV nausea meds for initial management. Rule out appendicitis versus PCOS. 07/09/20 21:[address] did find the appendix, which is normal in size. IUD is found and noted within normal location. She is had a prior cholecystectomy. Otherwise no acute abnormalities appreciated on the CT. Laboratory evaluation demonstrates a normal white blood cell count, slightly elevated CRP at 1.4, and metabolic panel that is unremarkable at this time. She very well could have endometriosis that is undiagnosed. She will continue to talk with her LENDING ACTIVITIES SUPERVISOR, Dr. Brown for further evaluation. I did give her general conservative recommendations at this time, and gave her strict return precautions. She verbalized understanding. Departure - Departure Time of Disposition: 21:27 Disposition: Home, Self-Care 01 Condition: Good Clinical Impression: RLQ abdominal pain - Discharge Information *PRESCRIPTION DRUG MONITORING PROGRAM REVIEWED*: No *COPY OF PRESCRIPTION DRUG MONITORING REPORT IN PATIENT RAJEEV: No Instructions: Abdominal Pain, Adult, [id number] Referrals: Iris Negron PA-C [Primary Care Provider] - Forms: ED Department Discharge Additional Instructions: You were evaluated in the ER today regarding your lower abdominal pain. Your work-up in the ER today included a CT, and lab work. All of which were unremarkable. Your IUD was found and where it should be, your appendix was found, and is not enlarged or inflamed. There were no obvious ovarian cysts appreciated on today's exam. Recommend you take 600 mg ibuprofen or 500 mg Tylenol every 6 hours as needed for further pain relief. Do not exceed 3200 mg ibuprofen or 4000 mg Tylenol in a 24-hour time span. Recommend you follow-up with your LENDING ACTIVITIES SUPERVISOR, Dr. Brown, for the evaluation of possible endometriosis. Please return to the ER at any time if your symptoms should change or worsen. Sepsis Event Note (ED) - Evaluation Sepsis Screening Result: No Definite Risk - Focused Exam Vital Signs: Vital Signs Temp Pulse Resp BP Pulse Ox 07/09/20 18:41 97.5 F 114 H 16 138/89 100 - My Orders Last 24 Hours: My Active Orders 07/09/20 19:30 Sodium Chloride 0.9% [Normal Saline] 1,000 ml IV ASDIRECTED 07/09/20 19:54 Sodium Chloride 0.9% [Saline Flush] 10 ml FLUSH ONETIME PRN - Assessment/Plan Last 24 Hours: My Active Orders 07/09/20 19:30 Sodium Chloride 0.9% [Normal Saline] 1,000 ml IV ASDIRECTED 07/09/20 19:54 Sodium Chloride 0.9% [Saline Flush] 10 ml FLUSH ONETIME PRN
[2020-07-09] MEDS ORDERED: Sodium Chloride 0.9% 1,000 ML IV SCH (19:30)
[2020-07-09] MEDS: HYDROmorphone 1 MG/ML Syringe IVPUSH STA ×2 (19:49→20:41)
[2020-07-09] MEDS ORDERED: Sodium Chloride 0.9% 10 ML Syringe FLUSH PRN (19:54)
[2020-07-09] MEDS ORDERED: Diatrizoate Meglumine/Diatrizoate Sodium 37% 120 ML Bottle PO ONE (19:54)
[2020-07-09] MEDS ORDERED: Iopamidol 612 MG/ML 100 ML Bottle IVPUSH ONE (19:54)
[2020-07-09] MEDS ORDERED: Iopamidol 612 MG/ML 50 ML SDV IVPUSH ONE (20:45)
--- NOTE | 2020-07-09 21:14 | CT ---
CT abdomen and pelvis Technique: Multiple axial sections were obtained from above the dome of the diaphragm inferiorly through the pubic symphysis. Intravenous and oral contrast has been given. Delayed images were also obtained through the bladder. Reconstructed coronal and sagittal images were reviewed. Findings: Appendix is seen which is normal in size. Visualized lung bases show nothing acute. Liver contains no focal parenchymal abnormality. Surgical clips are noted from prior cholecystectomy. Spleen appears within normal limits. Adrenal glands show no nodule. Pancreas shows no discrete abnormality. Kidneys show contrast enhancement without hydronephrosis or mass. Aorta shows no aneurysm. No retroperitoneal adenopathy or mesenteric abnormalities are seen. No pelvic mass or adenopathy is noted. IUD is present within the uterus. No free fluid or inflammatory change is appreciated. Delayed images shows contrast within the distal ureter and within the bladder. Bone window settings were reviewed which shows no acute osseous finding. Impression: 1. IUD is noted which is normal in location. 2. Prior cholecystectomy. 3. Nothing acute is appreciated on CT study of the abdomen and pelvis. No etiology is appreciated for the patient's right lower quadrant symptoms. Diagnostic code #2 This report was dictated in MDT
== END 2020-07-09 21:35 | disposition home or self-care (01) ==
LOC: JD.ED 18:28
DX: R10.31 Right lower quadrant pain (principal); J45.909 Unspecified asthma, uncomplicated; E66.9 Obesity, unspecified; Z90.49 Acquired absence of other specified parts of digestive tract; Z77.22 Contact with and (suspected) exposure to environmental tobacco smoke (acute) (chronic); Z88.1 Allergy status to other antibiotic agents; Z88.8 Allergy status to other drugs, medicaments and biological substances; Z91.09 Other allergy status, other than to drugs and biological substances; Z91.010 Allergy to peanuts; Z91.018 Allergy to other foods; Z79.899 Other long term (current) drug therapy; Z68.43 Body mass index [BMI] 50.0-59.9, adult
CPT/HCPCS: 36415; 74177; 80053; 81001; 81025; 83735; 85007; 85027; 86140; 96374; 96375; 96376; 99284; J1170; J2405; J7030; Q9963; Q9967

== ENCOUNTER 2022-12-21 15:46 | Emergency (ER) | payer BC ==
[2022-12-21] MEDS ORDERED: Metoclopramide 10 MG/2 ML SDV IVPUSH ONE (16:46)
[2022-12-21] MEDS ORDERED: Sodium Chloride 0.9% 10 ML Syringe FLUSH PRN (16:46)
[2022-12-21] MEDS ORDERED: HYDROmorphone 0.5 MG/0.5 ML Syringe IVPUSH ONE (16:46)
[2022-12-21] MEDS ORDERED: Sodium Chloride 0.9% 1,000 ML IV SCH (17:00)
[2022-12-21 19:15] VITALS: BP 109/63; PULSE 78
== END 2022-12-21 19:15 | disposition home or self-care (01) ==
LOC: JD.ED 15:46
DX: R10.9 Unspecified abdominal pain (principal); R11.2 Nausea with vomiting, unspecified; J45.909 Unspecified asthma, uncomplicated; E66.9 Obesity, unspecified; Z68.41 Body mass index [BMI] 40.0-44.9, adult; Z88.1 Allergy status to other antibiotic agents; Z88.8 Allergy status to other drugs, medicaments and biological substances; Z91.018 Allergy to other foods; Z91.010 Allergy to peanuts; Z79.899 Other long term (current) drug therapy
CPT/HCPCS: 96361; 96374; 96375; 99283; J1170; J2765; J3490; J7030

== ENCOUNTER 2023-12-17 19:14 | Emergency (ER) | payer BC ==
[2023-12-17] MEDS: Dextrose 5%-0.9% NaCl 1,000 ML IV SCH (20:35)
[2023-12-17] MEDS: Metoclopramide 10 MG/2 ML SDV IVPUSH ONE (20:36)
[2023-12-17] MEDS: diphenhydrAMINE 50 MG/ML SDV IVPUSH ONE (20:36)
[2023-12-17] MEDS: HYDROmorphone 1 MG/ML Syringe IVPUSH ONE (20:36)
[2023-12-17] MEDS: Ketorolac 30 MG/ML SDV IVPUSH SCH (20:51)
[2023-12-17 22:37] VITALS: BP 125/69; PULSE 75
== END 2023-12-17 22:28 | disposition home or self-care (01) ==
LOC: JD.ED 19:14
DX: G43.909 Migraine, unspecified, not intractable, without status migrainosus (principal); J45.909 Unspecified asthma, uncomplicated; E66.9 Obesity, unspecified; Z79.899 Other long term (current) drug therapy; Z88.1 Allergy status to other antibiotic agents; Z91.010 Allergy to peanuts; Z91.018 Allergy to other foods; Z88.8 Allergy status to other drugs, medicaments and biological substances
CPT/HCPCS: 96361; 96374; 96375; 99283-25; 99284; J1170; J1200; J1885; J2765; J7042

== ENCOUNTER 2024-07-27 21:10 | Emergency (ER) | payer BC ==
[2024-07-27] MEDS ORDERED: Sodium Chloride 0.9% 10 ML Syringe FLUSH PRN (22:08)
[2024-07-27 22:30] LABS: BASOPHILS PERCENT AUTO 0.6 % (0.0-1.0); EOSINOPHILS ABSOLUTE AUTO 0.2 K/mm3 (0.0-0.4); EOSINOPHILS PERCENT AUTO 3.8 % (0.0-6.0); HEMATOCRIT 40.8 % (37.0-47.0); HEMOGLOBIN 13.3 gm/dl (12.0-16.0); IMMATURE GRAN ABSOLUTE AUTO 0.02 K/mm3 (0.00-0.05); IMMATURE GRAN PERCENT AUTO 0.4 % (0.0-0.4); LYMPHOCYTES ABSOLUTE AUTO 1.1 K/mm3 (1.0-4.8); LYMPHOCYTES PERCENT AUTO 21.5 % (24.0-44.0); MEAN CORPUSCULAR HEMOGLOBIN 29.6 pg (28.0-32.0); MEAN CORPUSCULAR HGB CONC 32.6 g/dl (32.0-36.0); MEAN CORPUSCULAR VOLUME 90.7 fl (83.0-99.0); MONOCYTES ABSOLUTE AUTO 0.5 K/mm3 (0.0-0.8); MONOCYTES PERCENT AUTO 9.9 % (0.0-8.0); NEUTROPHILS ABSOLUTE AUTO 3.4 K/mm3 (1.8-7.7); NEUTROPHILS PERCENT AUTO 63.8 % (41.0-71.0); PLATELET COUNT,PLT 183 K/mm3 (150-400); WHITE BLOOD CELL COUNT,WBC 5.25 K/mm3 (3.9-11.3)
[2024-07-27] MEDS: Ketorolac 30 MG/ML SDV IVPUSH ONE (22:33)
[2024-07-27] MEDS: Sodium Chloride 0.9% 1,000 ML IV ONE (22:33)
[2024-07-27 23:08] LABS: A/G RATIO 1.1 (1-2); ALANINE AMINOTRANSFERASE,ALT 49 U/L (14-59); ALBUMIN 3.7 g/dl (3.4-5.0); ALKALINE PHOSPHATASE 55 U/L (46-116); ANION GAP 14.6 (5-15); ASPARTATE AMNIOTRANSFERASE,AST 18 U/L (15-37); BILIRUBIN TOTAL 0.4 mg/dL (0.2-1.0); BLOOD UREA NITROGEN,BUN 16 mg/dL (7-18); BUN/CREATININE RATIO 17.8 (14-18); CALCIUM 8.8 mg/dL (8.5-10.1); CARBON DIOXIDE,CO2 23 mEq/L (21-32); CHLORIDE,CL 107 mEq/L (98-107); CREATININE 0.9 mg/dL (0.55-1.02); ESTIMATED GFR 86 mL/min (>60); GLUCOSE RANDOM 90 mg/dL (70-99); POTASSIUM,K 4.6 mEq/L (3.5-5.1); PROTEIN TOTAL,TP 7.1 g/dl (6.4-8.2); SODIUM,NA 140 mEq/L (136-145); TSH 1.008 uIU/mL (0.358-3.74)
[2024-07-27 23:47] VITALS: BP 115/80; PULSE 80
== END 2024-07-27 23:49 | disposition home or self-care (01) ==
LOC: JD.ED 21:10
DX: R51.9 Headache, unspecified (principal); J45.909 Unspecified asthma, uncomplicated; K21.9 Gastro-esophageal reflux disease without esophagitis; E66.9 Obesity, unspecified; Z79.899 Other long term (current) drug therapy; Z91.018 Allergy to other foods; Z91.010 Allergy to peanuts; Z88.8 Allergy status to other drugs, medicaments and biological substances; Z91.048 Other nonmedicinal substance allergy status
CPT/HCPCS: 36415; 80053; 83735; 84443; 85025; 96374; 99283; J1885; J7030; 99284

== ENCOUNTER 2024-09-30 19:12 | Emergency (ER) | payer BC ==
[2024-09-30] MEDS: Sodium Chloride 0.9% 1,000 ML IV SCH (20:12)
[2024-09-30] MEDS: diphenhydrAMINE 50 MG/ML SDV IVPUSH ONE (20:13)
[2024-09-30] MEDS: Sodium Chloride 0.9% 10 ML Syringe FLUSH PRN (20:13)
[2024-09-30] MEDS: Ketorolac 30 MG/ML SDV IVPUSH ONE (20:18)
[2024-09-30] MEDS: Metoclopramide 10 MG/2 ML SDV IVPUSH ONE (20:21)
[2024-09-30 21:17] VITALS: BP 116/59; PULSE 66
== END 2024-09-30 21:17 | disposition home or self-care (01) ==
LOC: JD.ED 19:12
DX: G43.909 Migraine, unspecified, not intractable, without status migrainosus (principal); J45.909 Unspecified asthma, uncomplicated; Z86.16 Personal history of COVID-19; E66.9 Obesity, unspecified; Z68.41 Body mass index [BMI] 40.0-44.9, adult; Z79.899 Other long term (current) drug therapy; Z90.49 Acquired absence of other specified parts of digestive tract; Z91.018 Allergy to other foods; Z88.1 Allergy status to other antibiotic agents; Z88.8 Allergy status to other drugs, medicaments and biological substances
CPT/HCPCS: 96361; 96374; 96375; 99283-25; J1200; J1885; J2765; J3490; J7030

== ENCOUNTER 2024-11-19 08:48 | Emergency (ER) | payer BC ==
[2024-11-19 09:39] LABS: BASOPHILS ABSOLUTE AUTO 0.1 K/mm3 (0.0-0.2); BASOPHILS PERCENT AUTO 0.7 % (0.0-1.0); EOSINOPHILS ABSOLUTE AUTO 0.3 K/mm3 (0.0-0.4); EOSINOPHILS PERCENT AUTO 3.7 % (0.0-6.0); HEMATOCRIT 39.8 % (37.0-47.0); IMMATURE GRAN ABSOLUTE AUTO 0.01 K/mm3 (0.00-0.05); IMMATURE GRAN PERCENT AUTO 0.1 % (0.0-0.4); LYMPHOCYTES ABSOLUTE AUTO 1.6 K/mm3 (1.0-4.8); LYMPHOCYTES PERCENT AUTO 23.7 % (24.0-44.0); MEAN CORPUSCULAR HEMOGLOBIN 29.5 pg (28.0-32.0); MEAN CORPUSCULAR HGB CONC 32.7 g/dl (32.0-36.0); MEAN CORPUSCULAR VOLUME 90.5 fl (83.0-99.0); MONOCYTES ABSOLUTE AUTO 0.7 K/mm3 (0.0-0.8); MONOCYTES PERCENT AUTO 9.7 % (0.0-8.0); NEUTROPHILS ABSOLUTE AUTO 4.2 K/mm3 (1.8-7.7); NEUTROPHILS PERCENT AUTO 62.1 % (41.0-71.0); PLATELET COUNT,PLT 204 K/mm3 (150-400); WHITE BLOOD CELL COUNT,WBC 6.79 K/mm3 (3.9-11.3)
[2024-11-19 09:55] LABS: APPEARANCE,URINE CLEAR (Clear); BILIRUBIN,URINE NEGATIVE (Negative); COLOR,URINE YELLOW (Yellow); GLUCOSE,URINE NEGATIVE (Negative); KETONES,URINE NEGATIVE (Negative); LEUKOCYTE ESTERASE,URINE NEGATIVE (Negative); NITRITE,URINE NEGATIVE (Negative); OCCULT BLOOD,URINE NEGATIVE (Negative); PROTEIN,URINE NEGATIVE (Negative)
[2024-11-19] MEDS: Sodium Chloride 0.9% 1,000 ML IV STA (09:58)
[2024-11-19] MEDS: Sodium Chloride 0.9% 10 ML Syringe FLUSH ONE (09:59)
[2024-11-19] MEDS: Ondansetron 4 MG/2 ML SDV IVPUSH ONE (10:00)
[2024-11-19] MEDS: HYDROmorphone 0.5 MG/0.5 ML Syringe IVPUSH ONE ×2 (10:02→14:52)
[2024-11-19 10:17] LABS: ALBUMIN 3.5 g/dl (3.4-5.0); ANION GAP 15.4 (5-15); BILIRUBIN TOTAL 0.3 mg/dL (0.2-1.0); CALCIUM 8.6 mg/dL (8.5-10.1); CREATININE 0.8 mg/dL (0.55-1.02); EST CRCL DRUG DOSING (CG) 84.76 mL/min; POTASSIUM,K 4.4 mEq/L (3.5-5.1); PROTEIN TOTAL,TP 7.2 g/dl (6.4-8.2)
[2024-11-19] MEDS: Iopamidol 612 MG/ML 100 ML Bottle IVPUSH ONE (10:38)
[2024-11-19] MEDS: Sodium Chloride 0.9% 10 ML Syringe FLUSH PRN (10:38)
[2024-11-19 11:30] VITALS: BP 108/65; PULSE 77
[2024-11-19] MEDS: Acetaminophen 325 MG Tab PO ONE (11:47)
[2024-11-19 16:18] LABS: BACTERIA,URINE NOT SEEN /hpf (FEW); EPITHELIAL CELLS,URINE 0-5 /hpf (0-5); MUCUS,URINE NOT SEEN /hpf (FEW); RBC,URINE 0-5 /hpf (0-5); WBC,URINE 0-5 /hpf (0-5)
== END 2024-11-19 15:11 | disposition home or self-care (01) ==
LOC: JD.ED 08:48
DX: N83.201 Unspecified ovarian cyst, right side (principal); N28.89 Other specified disorders of kidney and ureter; J45.909 Unspecified asthma, uncomplicated; K21.9 Gastro-esophageal reflux disease without esophagitis; E66.9 Obesity, unspecified; Z86.16 Personal history of COVID-19; Z79.899 Other long term (current) drug therapy; Z88.8 Allergy status to other drugs, medicaments and biological substances; Z91.048 Other nonmedicinal substance allergy status; Z91.010 Allergy to peanuts; Z88.1 Allergy status to other antibiotic agents; Z68.41 Body mass index [BMI] 40.0-44.9, adult
CPT/HCPCS: 36415; 74177; 74177-26; 76830; 76830-26; 80053; 81001; 83690; 84703; 85025; 96361; 96374; 96375; 96376; 99284; 99284-25; A9270-GY; J2405; J7030; Q9967

== ENCOUNTER 2025-01-12 14:19 | Emergency (ER) | payer BC ==
[2025-01-12] MEDS ORDERED: Sodium Chloride 0.9% 10 ML Syringe FLUSH PRN (15:28)
[2025-01-12] MEDS: diphenhydrAMINE 50 MG/ML SDV IVPUSH ONE (16:22)
[2025-01-12] MEDS: Ketorolac 30 MG/ML SDV IVPUSH ONE (16:22)
[2025-01-12] MEDS: Metoclopramide 10 MG/2 ML SDV IVPUSH ONE (16:23)
[2025-01-12] MEDS: Sodium Chloride 0.9% 1,000 ML IV STA (16:24)
[2025-01-12 16:43] LABS: BASOPHILS ABSOLUTE AUTO 0.1 K/mm3 (0.0-0.2); BASOPHILS PERCENT AUTO 0.9 % (0.0-1.0); EOSINOPHILS ABSOLUTE AUTO 0.3 K/mm3 (0.0-0.4); EOSINOPHILS PERCENT AUTO 5.3 % (0.0-6.0); HEMATOCRIT 40.7 % (37.0-47.0); HEMOGLOBIN 13.2 gm/dl (12.0-16.0); IMMATURE GRAN ABSOLUTE AUTO 0.03 K/mm3 (0.00-0.05); IMMATURE GRAN PERCENT AUTO 0.5 % (0.0-0.4); LYMPHOCYTES ABSOLUTE AUTO 1.5 K/mm3 (1.0-4.8); LYMPHOCYTES PERCENT AUTO 23.3 % (24.0-44.0); MEAN CORPUSCULAR HEMOGLOBIN 29.5 pg (28.0-32.0); MEAN CORPUSCULAR HGB CONC 32.4 g/dl (32.0-36.0); MEAN CORPUSCULAR VOLUME 91.1 fl (83.0-99.0); MONOCYTES ABSOLUTE AUTO 0.7 K/mm3 (0.0-0.8); MONOCYTES PERCENT AUTO 10.7 % (0.0-8.0); NEUTROPHILS ABSOLUTE AUTO 3.8 K/mm3 (1.8-7.7); NEUTROPHILS PERCENT AUTO 59.3 % (41.0-71.0); PLATELET COUNT,PLT 210 K/mm3 (150-400); RED BLOOD CELL COUNT 4.47 M/mm3 (4.10-5.30); WHITE BLOOD CELL COUNT,WBC 6.47 K/mm3 (3.9-11.3)
[2025-01-12 16:56] LABS: ALANINE AMINOTRANSFERASE,ALT 18 U/L (14-59); ALBUMIN 3.6 g/dl (3.4-5.0); ALKALINE PHOSPHATASE 74 U/L (46-116); ASPARTATE AMNIOTRANSFERASE,AST 10 U/L (15-37); BILIRUBIN TOTAL 0.6 mg/dL (0.2-1.0); BLOOD UREA NITROGEN,BUN 11 mg/dL (7-18); BUN/CREATININE RATIO 13.8 (14-18); C-REACTIVE PROTEIN 0.36 mg/dL (<0.30); CALCIUM 8.4 mg/dL (8.5-10.1); CARBON DIOXIDE,CO2 25 mEq/L (21-32); CHLORIDE,CL 109 mEq/L (98-107); CREATININE 0.8 mg/dL (0.55-1.02); ESTIMATED GFR 98 mL/min (>60); GLUCOSE RANDOM 91 mg/dL (70-99); PROTEIN TOTAL,TP 7.3 g/dl (6.4-8.2); SODIUM,NA 143 mEq/L (136-145)
[2025-01-12 19:00] VITALS: BP 116/76; PULSE 75
== END 2025-01-12 19:00 | disposition home or self-care (01) ==
LOC: JD.ED 14:19
DX: G43.909 Migraine, unspecified, not intractable, without status migrainosus (principal); N83.201 Unspecified ovarian cyst, right side; J45.909 Unspecified asthma, uncomplicated; E66.9 Obesity, unspecified; Z86.16 Personal history of COVID-19; Z90.49 Acquired absence of other specified parts of digestive tract; Z88.8 Allergy status to other drugs, medicaments and biological substances; Z91.010 Allergy to peanuts; Z91.018 Allergy to other foods; Z79.899 Other long term (current) drug therapy
CPT/HCPCS: 36415; 80053; 85025; 86140; 96361; 96374; 96375; 99284; J1200; J1885; J2765; J7030; 99283